=== PATIENT | male | born 1980 | race Caucasian/White ===

== ENCOUNTER 2019-03-08 09:51 | Emergency (ER) | payer MEDICAID ==
[~2019-03-08] VITALS: Ht 180.3 cm; Wt 81.8 kg
[2019-03-08 09:53] VITALS: BP 124/85
[2019-03-08] MEDS ORDERED: cyclobenzaprine 10mg tablet PO ONE (11:05)
--- NOTE | 2019-03-08 11:22 | NUR ---
pt medicated with flexeril. Pt to xray.
[2019-03-08 12:01] LABS: CLARITY,URINE CLEAR (Clear); COLOR,URINE YELLOW (Yellow); GLUCOSE, URINE NEGATIVE (Neg); KETONES,URINE TRACE mg/dl (Neg); LEUKOCYTE ESTERASE ,URINE NEGATIVE (Neg); NITRITES, URINE NEGATIVE (Neg); OCCULT BLOOD,URINE NEGATIVE (Neg); PH,URINE 5.5 (4.8-8.0); PROTEIN,URINE TRACE mg/dl (Neg); UROBILINOGEN,URINE 0.2 E.U/dL (0.2-1.0)
[2019-03-08 12:02] LABS: UA COLLECTION TYPE CLN CATCH MIDSTREAM
[2019-03-08] MEDS ORDERED: ketorolac trometh. 30mg/ml inj. IM ONE (12:15)
[2019-03-08] MEDS ORDERED: ketorolac trometh inj. 60 MG/2 ML VIAL IM ONE (12:15)
[2019-03-08] MEDS ORDERED: CYCL-1 PO (12:18)
[2019-03-08 12:30] LABS: BACTERIA,URINE FEW /HPF (Neg); MUCUS STRANDS MANY /LPF (Neg); RBC,URINE 0-2 /HPF (0-2); SQUAMOUS EPITHELIAL CELL,UR FEW /LPF (FEW); WBC,URINE 0-4 /HPF (0-4)
[2019-03-08 12:31] LABS: COARSE GRANULAR CAST 0-3 /LPF (NEGATIVE)
== END 2019-03-08 12:27 | disposition home or self-care (01) ==
LOC: ER 09:51
DX: M54.5 Low back pain (principal); G89.29 Other chronic pain; F17.200 Nicotine dependence, unspecified, uncomplicated; F14.90 Cocaine use, unspecified, uncomplicated; F10.99 Alcohol use, unspecified with unspecified alcohol-induced disorder; Z79.899 Other long term (current) drug therapy; Y90.9 Presence of alcohol in blood, level not specified
CPT/HCPCS: 72074; 72100; 81001; 96372; 99284; J1885

== ENCOUNTER 2022-11-01 15:48 | Emergency (ER) | payer MEDICAID ==
[~2022-11-01] VITALS: Ht 180.3 cm; Wt 67.0 kg
[~2022-11-01 15:48] MED LIST: CYCL-1 PO
[2022-11-01 17:25] LABS: BASOPHILS # (AUTO) 0.1 X10'3 (0-0.2); BASOPHILS % (AUTO) 0.9 % (0-1); EOSINOPHILS # (AUTO) 0.2 X10'3 (0-0.9); HEMOGLOBIN 15.4 g/dl (14.0-17.9); LYMPHOCYTES # (AUTO) 2.2 X10'3 (1.1-4.8); LYMPHOCYTES % (AUTO) 22.8 % (21-51); MEAN CORPUSCULAR HEMOGLOBIN 31.5 PG (27.0-31.0); MEAN CORPUSCULAR HGB CONC 34.2 g/dL (33.0-36.5); MEAN CORPUSCULAR VOLUME 92.1 FL (78-98); MEAN PLATELET VOLUME 7.9 FL (7.4-10.4); MONOCYTES # (AUTO) 0.6 X10'3 (0-0.9); MONOCYTES % (AUTO) 6.4 % (2-12); NEUTROPHILS # (AUTO) 6.6 X10'3 (1.8-7.7); NEUTROPHILS % (AUTO) 67.9 % (42-75); PLATELET COUNT 274 X10'3 (140-440); RED BLOOD COUNT 4.88 X10'6 (4.70-6.10); RED CELL DISTRIBUTION WIDTH 12.9 % (11.5-14.5); WHITE BLOOD COUNT 9.8 X10'3 (4.5-11.0)
[2022-11-01 17:43] LABS: ALANINE AMINOTRANSFERASE 562 U/L (12-78); ALBUMIN 3.5 G/DL (3.4-5.0); ALBUMIN/GLOBULIN RATIO 0.7 (1.1-1.5); ALKALINE PHOSPHATASE 286 IU/L (46-116); ANION GAP 8 (8-16); ASPARTATE AMINO TRANSFERASE 188 U/L (10-37); BILIRUBIN,TOTAL 0.6 MG/DL (0.1-1.0); BLOOD UREA NITROGEN 10 MG/DL (7-18); BUN/CREATININE RATIO 10.4 (10.0-20.0); CALCIUM 9.2 MG/DL (8.5-10.1); CHLORIDE 100 MMOL/L (99-107); CREATININE 0.96 MG/DL (0.60-1.10); GLUCOSE 144 MG/DL (70-104); LIPASE 118 U/L (73-393); POTASSIUM 3.8 MMOL/L (3.5-5.1); SODIUM 135 MMOL/L (135-145); TOTAL CARBON DIOXIDE 26.6 MMOL/L (24-32); TOTAL PROTEIN 8.3 G/DL (6.4-8.2); eGFR 86 ML/MIN
[2022-11-01] MEDS ORDERED: metoclopramide 5 mg/ml inj IV ONE (22:30)
[2022-11-01] MEDS ORDERED: normal saline 1000ML IV soln IVB ONE (22:30)
[2022-11-01] MEDS ORDERED: diphenhydrAMINE 50 mg/ml inj IV ONE (22:30)
[2022-11-01] MEDS ORDERED: acetaminophen 325mg tablet PO ONE (22:30)
[2022-11-02] MEDS ORDERED: ketorolac trometh. 30mg/ml inj. IV ONE (00:15)
[2022-11-02 01:06] VITALS: BP 102/76
== END 2022-11-02 03:27 | disposition home or self-care (01) ==
LOC: ER 15:49
DX: B34.9 Viral infection, unspecified (principal); R51.9 Headache, unspecified; Z20.822 Contact with and (suspected) exposure to COVID-19; R10.32 Left lower quadrant pain; G89.29 Other chronic pain; F17.200 Nicotine dependence, unspecified, uncomplicated; F14.90 Cocaine use, unspecified, uncomplicated; Z72.89 Other problems related to lifestyle; Z79.899 Other long term (current) drug therapy
CPT/HCPCS: 36415; 71045; 80053; 83605; 83690; 85025; 87040; 87081; 87502; 87503; 87811; 87880; 96361; 96374; 96375; 99284; J1200; J1885; J2765; J7030; 99285